=== PATIENT | male | born 1955 | race Caucasian/White ===

== ENCOUNTER 2017-07-14 08:30 | Emergency (ER) | payer OTHER ==
[~2017-07-14] VITALS: Ht 180.3 cm; Wt 102.0 kg
[~2017-07-14 08:30] MED LIST: AMBIEN5 MG PO; AMOXICILLIN875 MG OR; AUGMENTIN875TAB OR; PRILOSEC OTC20 MG OR; PROAIR HFA IN; XANAX0.25 MG PO
[2017-07-14] MEDS ORDERED: NEXIUM40 M1 PO (08:51)
[2017-07-14] MEDS ORDERED: SAW PALMETTO500 MG PO (08:52)
[2017-07-14] MEDS ORDERED: ONE DAILY ADULTS50 + PO (08:52)
[2017-07-14 09:14] LABS: HEMATOCRIT 46.9 % (39.0-50.0); HEMOGLOBIN 16.4 g/dl (14.0-18.0); IMMATURE GRANULOCYTES 0.3 % (0.0-1.0); MEAN CELL VOLUME 97.5 fL CALC (80.0-100.0); MEAN CORPUSCULAR HGB 34.1 pG CALC (26.0-32.0); NEUT# 4.82 thou/uL (1.82-7.42); RED BLOOD COUNT 4.81 mill/uL (4.70-6.10); RED CELL DISTRI WIDTH 11.9 % (11.5-15.5)
[2017-07-14 09:17] LABS: ALKALINE PHOSPHATASE 63 u/l (38-126); ANION GAP 13 (6-22 (CALC)); BUN 13 mg/dL (8-23); BUN/CREATININE RATIO 15 (12-20 (CALC)); CALCIUM 9.2 mg/dL (8.4-10.2); CARBON DIOXIDE 23 mmol/l (22-30); CHLORIDE 107 mmol/l (95-108); CREATININE 0.9 mg/dL (0.7-1.3); GFR > 60 ML/MIN (>=60 (CALC)); GFR FOR AFR.AMER. > 60 ML/MIN (>=60 (CALC)); GLUCOSE 107 mg/dL (82-115); POTASSIUM 4.5 mmol/l (3.5-5.1); SGOT/AST 37 u/l (19-48); SGPT/ALT 68 u/l (11-66); SODIUM 138 mmol/l (137-146); TOTAL PROTEIN 6.5 g/dL (6.3-8.2)
[2017-07-14 09:19] LABS: PROTHROMBIN TIME 11.2 SECONDS (9.0-12.5)
[2017-07-14 09:29] LABS: MYOGLOBIN 36 ng/mL (0 - 121)
[2017-07-14 10:12] LABS: URINE BILIRUBIN - DIPSTICK NEGATIVE (NEGATIVE); URINE BLOOD DIPSTICK NEGATIVE (NEGATIVE); URINE COLOR YELLOW; URINE GLUCOSE - DIPSTICK NEGATIVE (NEGATIVE); URINE KETONE NEGATIVE (NEGATIVE); URINE LEUK ESTERASE NEGATIVE (NEGATIVE); URINE NITRITE - DIPSTICK NEGATIVE (Negative); URINE PROTEIN - DIPSTICK NEGATIVE (NEG-TRACE); URINE SPECIFIC GRAVITY 1.025; URINE UROBILINOGEN - DIPSTICK 0.2 E.U./dL (0.2)
[2017-07-14 10:13] LABS: URINE CLARITY CLEAR
[2017-07-14 12:17] VITALS: BP 154/72
== END 2017-07-14 12:52 | disposition home or self-care (01) | DRG 310 ==
LOC: ED 08:30
PROVIDERS: Emergency Medicine
DX: R00.2 Palpitations (principal); K21.9 Gastro-esophageal reflux disease without esophagitis; N40.0 Benign prostatic hyperplasia without lower urinary tract symptoms